=== PATIENT | male | born 1945 | race Two or more races ===

== ENCOUNTER 2017-11-13 20:29 | Emergency (ER) | payer SELFPAY ==
[~2017-11-13] VITALS: Ht 167.6 cm; Wt 79.4 kg
[2017-11-13] MEDS ORDERED: Albuterol ud Inhalation HHN ONE ×2 (20:45→21:15)
[2017-11-13] MEDS ORDERED: Ipratropium 0.02% Inh Soln 2.5ml UD HHN ONE (20:45)
[2017-11-13] MEDS ORDERED: Nitroglycerin 2% oint pkt TOPIC ONE (21:00)
[2017-11-13 21:05] VITALS: BP 196/95
[2017-11-13] MEDS ORDERED: Solu-MEDROL 125mg Inj IVP ONE (21:15)
[2017-11-13 21:22] LABS: BASOPHILS % (AUTO) 1.6 % (0.0-2.0); EOSINOPHILS % (AUTO) 7.6 % (0.0-3.0); HEMATOCRIT 48.9 % (42.0-52.0); HEMOGLOBIN 16.1 G/DL (14.2-18.0); LYMPHOCYTES % (AUTO) 34.1 % (20.0-45.0); MEAN CORPUSCULAR VOLUME 88 FL (80-99); MONOCYTES % (AUTO) 10.1 % (1.0-10.0); NEUTROPHILS % (AUTO) 46.5 % (45.0-75.0); PLATELET COUNT 214 K/UL (150-450); RED BLOOD COUNT 5.55 M/UL (4.70-6.10); RED CELL DISTRIBUTION WIDTH 12.2 % (11.6-14.8); WHITE BLOOD COUNT 8.2 K/UL (4.8-10.8)
--- NOTE | 2017-11-13 21:25 | Emergency Room Report ---
History of Present Illness General Chief Complaint: Dyspnea/Respdistress Source: Patient, Family Member Present Illness HPI This is a 72-year-old male with a history of high blood pressure and COPD. He presents with COPD exacerbation started this afternoon. Mar Lin short of breath and increasingly worse. His albuterol is not helping. No fever or chills. Coughing is productive of phlegm. Chest tightness. Worse with exertion. Better with rest. Allergies: Coded Allergies: No Known Allergies (Unverified , 11/13/17) Patient History Past Medical History: see triage record, old chart reviewed, HTN, COPD Past Surgical History: other Pertinent Family History: none Social History: Denies: smoking Immunizations: other Reviewed Nursing Documentation: PMH: Agreed; PSxH: Agreed Nursing Documentation-PMH Hx Hypertension: Yes Hx COPD: Yes Review of Systems Eye: Denies: eye pain, blurred vision ENT: Denies: ear pain, nose congestion, throat swelling Respiratory: Reports: cough, shortness of breath Cardiovascular: Denies: chest pain, palpitations Gastrointestinal: Denies: abdominal pain, diarrhea, nausea, vomiting Musculoskeletal: Denies: back pain, joint pain Skin: Denies: rash Neurological: Denies: headache, numbness Endocrine: Denies: increased thirst, increased urine Hematologic/Lymphatic: Denies: easy bruising All Other Systems: negative except mentioned in HPI Physical Exam Vital Signs Date Time Temp Pulse Resp B/P (MAP) Pulse Ox O2 Delivery O2 Flow Rate FiO2 11/13/17 20:32 97.7 96 22 180/83 91 Room Air 97.7 11/13/17 20:50 21 vitals with high blood pressure Sp02 EP Interpretation: reviewed, abnormal General Appearance: well appearing, alert, moderate distress Head: normocephalic, atraumatic Eyes: bilateral eye PERRL, bilateral eye EOMI ENT: hearing grossly normal, normal pharynx Neck: full range of motion, supple, no meningismus Respiratory: chest non-tender, respiratory distress, decreased breath sounds, accessory muscle use, wheezing Cardiovascular #1: regular rate, rhythm, no murmur Gastrointestinal: normal bowel sounds, non tender, no mass, no organomegaly, no bruit, non-distended Musculoskeletal: back normal, normal range of motion Neurologic: alert, oriented x3 Psychiatric: mood/affect normal Skin: warm/dry Medical Decision Making Diagnostic Impression: Primary Impression: COPD exacerbation Additional Impressions: Hypertension Qualified Codes: I10 - Essential (primary) hypertension Acute hyperglycemia ER Course Patient presents with COPD exacerbation. He is taking Advair at home. He is almost out of his albuterol. It appeared that he probably has undiagnosed diabetes and high blood pressure. His doctor is in [place]. He is back to baseline now. He does not want to stay in the hospital. On recheck no wheezing. No evidence of ACS, PE, dissection to name a few. He is competent to refuse admission. Lab Results Impression labs with elevated glucose EKG Diagnostic Results Rate: normal Rhythm: NSR, other - RBBB and LAFB ST Segments: no acute changes Rhythm Strip Diag. Results Rhythm Strip Time: 23:09 EP Interpretation: yes Rate: 92 Rhythm: NSR, no PVC's, no ectopy Chest X-Ray Diagnostic Results Chest X-Ray Diagnostic Results : Chest X-Ray Ordered: Yes # of Views/Limited/Complete: 1 View Indication: Shortness of Breath EP Interpretation: Yes Interpretation: no consolidation, no effusion, no pneumothorax, no acute cardiopulmonary disease Impression: No acute disease Electronically Signed by: Benjamin Magallon MD Last Vital Signs Date Time Temp Pulse Resp B/P (MAP) Pulse Ox O2 Delivery O2 Flow Rate FiO2 11/13/17 21:15 101 18 97 Room Air 21 11/13/17 20:54 196/95 11/13/17 20:32 97.7 97.7 Status: improved Disposition: HOME, SELF-CARE Condition: Stable Scripts Amlodipine Besylate (Norvasc) 10 Mg Tablet 10 MG ORAL DAILY, #30 TAB Prov: BENJAMIN MAGALLON M.D. 11/13/17 Metformin Hcl* (METFORMIN HCL*) 500 Mg Tablet 500 MG ORAL TWICE A DAY, #60 TAB Prov: BENJAMIN MAGALLON M.D. 11/13/17 Prednisone* (PREDNISONE*) 20 Mg Tablet 60 MG ORAL DAILY, #15 TAB Prov: BENJAMIN MAGALLON M.D. 11/13/17 Albuterol Sulfate* (ALBUTEROL SULFATE MDI*) 8.5 Gm Hfa.aer.ad 2 PUFF INH Q4H PRN for cough/wheezing, #1 EA 0 Refills Prov: BENJAMIN MAGALLON M.D. 11/13/17 Referrals: NOT CHOSEN IPA/MD,REFERRING (PCP) Patient Instructions: Chronic Obstructive Pulmonary Disease Exacerbation Additional Instructions: Follow-up with your doctor in 2-3 days for recheck. You will need to be rechecked for diabetes also. Return if symptom worsen. BENJAMIN MAGALLON M.D. Nov 13, 2017 21:25
[2017-11-13 21:40] LABS: ANION GAP 9 mmol/L (5-15); BLOOD UREA NITROGEN 11 mg/dL (7-18); CALCIUM 9.8 MG/DL (8.5-10.1); CARBON DIOXIDE 30 MMOL/L (21-32); CHLORIDE 100 MMOL/L (98-107); CREATININE 0.9 MG/DL (0.55-1.30); POTASSIUM 4.3 MMOL/L (3.5-5.1); SODIUM 139 MMOL/L (136-145)
[2017-11-13 22:09] LABS: ALANINE AMINOTRANSFERASE 27 U/L (12-78); ALBUMIN 4.1 G/DL (3.4-5.0); ALBUMIN/GLOBULIN RATIO 1.1 (1.0-2.7); ALKALINE PHOSPHATASE 97 U/L (46-116); ASPARTATE AMINO TRANSFERASE 18 U/L (15-37); BILIRUBIN,TOTAL 0.6 MG/DL (0.2-1.0); CKMB 4.3 NG/ML (0.0-3.6); CREATINE KINASE 180 U/L (26-308)
[2017-11-13] MEDS ORDERED: METFORMIN HCL500 M1 ORAL (23:10)
[2017-11-13] MEDS ORDERED: ALBUTEROL SULF8.5 GM INH (23:10)
[2017-11-13] MEDS ORDERED: PREDNISONE20 MG ORAL (23:10)
[2017-11-13] MEDS ORDERED: NORVASC10 MG ORAL (23:10)
[2017-11-13 23:19] VITALS: BP 152/83
[2017-11-13 23:32] VITALS: BP 173/83
--- NOTE | 2017-11-14 11:58 | Diagnostic Imaging Report ---
Indication: Shortness of breath Technique: One view of the chest Comparison: none Findings: Lungs are hyperinflated. Lungs and pleural spaces are clear. The heart size is normal Impression: Hyperinflation, could indicate COPD changes No acute process
--- NOTE | 2017-11-15 12:14 | Cardiology Report ---
APPROVED REPORT EKG Measurement Heart [id number] Normal sinus rhythm Right bundle branch block Left anterior fascicular block Bifascicular block Abnormal ECG
== END 2017-11-13 23:35 | disposition home or self-care (01) ==
LOC: EMR 20:55 → 2E 22:10 → UNDOADMIN 22:10 → EDBEDREQ 22:29 → EMR 23:35
DX: J44.1 Chronic obstructive pulmonary disease with (acute) exacerbation (principal)
CPT/HCPCS: 36415; 71045; 80053; 82550; 82553; 83605; 83690; 83880; 84484; 85025; 87040; 93005; 94640; 94664; 96374; 96375; 99284; J0360; J2930